=== PATIENT | male | born 1970 | race American Indian/Alaskan Native ===

== ENCOUNTER 2017-09-12 11:09 | Day surgery (SDC) | payer MEDICAID ==
[2017-08-28 17:19] VITALS: BMI 26.8
[2017-09-12 11:45] VITALS: RESP 20
[2017-09-12] MEDS ORDERED: Lactated Ringer's 1,000 ML IV ONE (12:06)
[2017-09-12] MEDS ORDERED: Bupivacaine 0.5% Inj(30mL) ONE (12:07)
[2017-09-12] MEDS ORDERED: Lidocaine 1% Inj (20ml) ONE (12:07)
[2017-09-12] MEDS ORDERED: ceFAZolin IV 1 gm in Dextrose 2 GM/100 ML BAG IVPB ONE (12:07)
[2017-09-12] MEDS ORDERED: ceFAZolin IV 1 gm in Dextrose 1 GM/50 ML BAG IVPB ONE (12:38)
[2017-09-12] MEDS ORDERED: Bupivacaine HCl 0.25% PF (30 ml) Inj IJ ONE (12:38)
--- NOTE | 2017-09-12 12:43 | CP.PCM.PN ---
Subjective - Date & Time of Evaluation Date of Evaluation: 09/12/17 Time of Evaluation: 12:39 - Subjective Subjective: Patient is a 46 y.o male with PMH of HTN and CVA seen in [facility] for pre-operative evaluation for left foot surgery by Dr. Price. Patient reports 08/23 with ambulation and movement of the 1st MPJ left foot. He states that he has had these pain over the past few years and is has progressively gotten worse over the years. He feels that he has exhausted all conservative treatment and now opts for surgery intervention. He last ate or drank anything at 10:30PM. He denies n/v/sob/cp/chills or f. Patient is in NAD, AA0x2 and seen resting comfortably in bedside. He is present with his mother. PSH: right foot surgery FH: mother hypertension ALL: NKDA. dust SH: 15 year smoker, 8 cigarettes a day, socially drinks, reports illicited, formerly used heroin. 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 Meds: methadone therapy Objective - Vital Signs/Intake and Output Vital Signs (last 24 hours): Temp Pulse Resp BP Pulse Ox 98 F 56 L 20 125/86 96 09/12/17 11:44 09/12/17 11:46 09/12/17 11:44 09/12/17 11:44 09/12/17 11:44 - Medications Medications: Current Medications Cefazolin Sodium 1 gm/ Sodium (Chloride) 100 mls @ 100 mls/hr IVPB ONCE ONE PRN Reason: Protocol Stop: 09/12/17 13:37 - Constitutional Appears: Well, Non-toxic, No Acute Distress - Extremities Exam Additional comments: Vasc: DP and PT 2/4 bilaterally, CFT <3 seconds to digits x10, temperature gradient WNL, no peripheral edema noted Ortho: moderate pain elicited upon palpation of the 1st MPJ medially and dorsally, restricted 1st MPJ ROM. Increae soft tissue mass medially and dorsum of the 1st MPJ. With stance, limited ROM of hallux noted. Negative crepitus to the right with mild crepitus noted to the left. STJ ROM is limited b/l, right: 9 degrees inversion, 8 degrees eversion, left 10 degrees inversion, 9 degrees eversion. There is mild forefoot valgus present bilaterally. There is plantarflexed first ray bilaterally, with rigid deformity. First MTPJ ROM on the left is to 5 degrees of dorsiflexion, 10 degrees of plantarflexion. There is no hammering of the lesser digits b/l . There is b/l hallux abductovalugs deformity L>R. There is collpase of the medial arch upon stance and gait, with mild abduction of the forefoot and rearfoot eversionb b/l. Neuro: protective and gross sensation intact Derm: hyperpigmented skin noted to the entire foot; no open lesions noted, no clinical signs of infection: no erythema, no purulence, or no odor. - Neurological Exam Neurological Exam: Alert, Awake, Oriented x3 - Psychiatric Exam Psychiatric exam: Normal Affect, Normal Mood Assessment and Plan - Assessment and Plan (Free Text) Assessment: Patient is a 46 y.o male with PMH of HTN and CVA seen in [facility] for pre-operative evaluation for left foot surgery by Dr. Price Plan: Pt was seen and examined in [facility] Pt NPO status was confirmed All Pre-op testing and clearance was in the chart Pt has exhausted all conservative treatment at this time and is opting for surgical intervention Pt was explained procedure and post-operative course All pt's questions were answered to satisfaction No guarantees were made Pt understands all risks, benefits and complications of procedure Pt will follow-up with
--- NOTE | 2017-09-12 12:43 | CP.SDSHP ---
Same Day Surgery H & P - History Proposed Procedure: left 1st cheilectomy with decompression with internal fixation Pre-Op Diagnosis: left painful hallux limitus - Allergies Allergies: Allergies No Known Allergies Allergy (Verified 05/04/17 14:02) - Physical Exam Vital Signs: Vital Signs 09/12/17 09/12/17 11:44 11:46 Temperature 98 F Pulse Rate 56 L 56 L Respiratory 20 Rate Blood Pressure 125/86 O2 Sat by Pulse 96 Oximetry Mental Status: Alert & Oriented x3 - Impression Impression: Pt was seen and examined in [facility]. Pt NPO status was confirmed. All Pre-op testing and clearance was in the chart. Pt has exhausted all conservative treatment at this time and is opting for surgical intervention. Pt was explained procedure and post-operative course. All pt's questions were answered to satisfaction. No guarantees were made. Pt understands all risks, benefits and complications of procedure. Pt will follow-up with Dr. Price - Date & Time Date: 09/12/17 Time: 12:35 Short Stay Discharge - Short Stay Discharge Admitting Diagnosis/Reason for Visit: M79.672 M20.5X2 Disposition: HOME/ ROUTINE Referrals: Sonia Velasquez MD [Primary Care Provider] - Additional Instructions (Diet, Activity): --Patient in good/stable condition for discharge home. Pt to resume medications per medical reconciliation. Resume regular diet. Please keep dressing clean, dry, & intact to surgical site, use plastic bag over bandage for showering, wear post op shoe at all times when ambulating, call clinic if you see signs of infection (redness, swelling, malodor), please make an appointment to see Dr. Price in office/clinic within 1 week for post-op check. Progress Note/Discharge Note with Instructions: - Patient evaluated bedside in recovery s/p surgical procedure. - After surgical procedure patient in NAD - (+) Void, (+) Appetite - Capillary refill time <3s and NVSI intact. - Patient denies complaints at this time - Post operative instructions and plan of care explained to patient at length. - Pt. acknowledges understanding. - Patient stable for DC per podiatric surgery
[2017-09-12] MEDS ORDERED: Midazolam 2 MG/2 ML VIAL ONE (13:22)
[2017-09-12] MEDS ORDERED: Propofol 10 mg/ml Inj (20 ML) ONE ×2 (13:22→14:38)
[2017-09-12] MEDS ORDERED: Lidocaine 2% PF (10 ml) Amp ONE (13:24)
[2017-09-12] MEDS ORDERED: Bupivacaine 0.5% 50 ML IJ ONE ×2 (13:50)
[2017-09-12] MEDS ORDERED: HYDROmorphone 0.5 mg/0.5 ml ISec IVP PRN (15:19)
--- NOTE | 2017-09-12 15:21 | PCM.SURG1 ---
Surgeon's Initial Post Op Note - Surgeon's Notes Surgeon: Dr. Price DPM Manager Emergency Department: Dr. Pedroza DPM PGY-2, Saurabh MSY4 Type of Anesthesia: IV Sedation, Local Anesthesia Administered By: Dr. Peace Pre-Operative Diagnosis: painful left hallux limitus Operative Findings: see dictations. injectables 20 cc .5% marcaine plain, vicryl 3-0, vicrl 4-0, nylon 4-0, bone wax Post-Operative Diagnosis: same Operation Performed: left hallux chielectomy Specimen/Specimens Removed: head of the 1st metatarsal left Estimated Blood Loss: EBL {In ML}: 0 Blood Products Given: N/A Drains Used: No Drains Post-Op Condition: Good Date of Surgery/Procedure: 09/12/17 Time of Surgery/Procedure: 13:00
--- NOTE | 2017-09-12 16:27 | RAD ---
PROCEDURE: Left Foot Radiographs. HISTORY: s/p left foot surgery COMPARISON: 07/06/2017 FINDINGS: BONES: Postoperative findings following hallux valgus repair. JOINTS: No significant interval change compared to the prior examination(s). SOFT TISSUES: Soft tissue swelling at the surgical site OTHER FINDINGS: None. IMPRESSION: Satisfactory postoperative status.
[2017-09-12 18:15] VITALS: BP 133/77; PULSE 62; TEMP 98.5; O2SAT 99
--- NOTE | 2017-09-13 00:31 | OP ---
PREOPERATIVE DIAGNOSIS: Left foot painful hallux rigidus. POSTOPERATIVE DIAGNOSIS: Left foot painful hallux rigidus. PROCEDURE: Left foot first metatarsal cheilectomy. SURGEON: Shoaib Price DPM. PROGRAM/MUSIC DIRECTOR: Snow Pedroza DPM, PGY-2. TYPE OF ANESTHESIA: IV sedation with local. ANESTHESIA ADMINISTERED BY: Elías Peace MD. INDICATIONS: The patient is a 46-year-old male with the above diagnosis. The patient has exhausted all conservative treatment and now requires surgical intervention. At this time, the patient signed the consent after careful explanation of risks, benefits, complications and alternatives for surgical procedure. No guarantees were given or implied. PREPARATION: The patient was brought into the operating room and placed in the operating room in a supine position. A well-padded pneumatic ankle tourniquet was applied to the patient's left ankle on the supramalleolar position. A time-out was performed for identification of correct patient and procedure. The patient received a total of 20 mL of a 0.5% Marcaine plain in a local block fashion to the left foot. Once local anesthesia was achieved, the left foot was then prepped and draped in the normal sterile manner. The patient's left foot was then exsanguinated by elevation and the pneumatic ankle tourniquet was inflated to 250 mmHg and the procedure began. DESCRIPTION OF PROCEDURE: Procedure 1 is left foot first metatarsophalangeal joint cheilectomy. Attention was directed to the dorsal aspect of the first metatarsophalangeal joint where an approximately 6 cm linear incision was made over the medial eminence. This incision was deepened using sharp and blunt dissection technique. All vital and neurovascular structures were retracted as necessary. A linear capsulotomy was performed with extension over the proximal phalanx and first metatarsal to expose the first metatarsophalangeal joint. The patient had hypertrophic bone formation. There was degeneration noted to the distal aspect of the first metatarsal head. The hypertrophied bone was excised using a sagittal saw and a rongeur from the dorsal, lateral and medial aspects of the first metatarsal head. All bony prominences were smoothed utilizing the sagittal saw. Attention was then directed to the distal aspect of the first metatarsal head and the base of the proximal phalanx where eburnation was noted. Utilizing a K-wire, the metatarsal head and base of the proximal phalanx were fenestrated. The surgical site was then irrigated with copious amounts of sterile saline. The bone was then further remodeled utilizing a sagittal saw and rongeur. The surgical site was then irrigated again. Bone wax was then applied to the first metatarsal. The surgical site was then irrigated with copious amount of normal sterile saline. The capsule was closed utilizing #3-0 Vicryl. The subcutaneous tissue was then closed utilizing #4-0 Vicryl. The skin was then closed utilizing #4-0 nylon in a combination of simple and horizontal suture technique. Postoperative dressings included Betadine-soaked Adaptic, 4x4's, Sarah and lastly TAYLOR. POSTOPERATIVE CONDITION: The patient tolerated the anesthesia and procedure well and was escorted to the recovery room with vital signs stable and neurovascular structures intact to the left foot. The patient will follow up with Dr. Price in clinic. Snow Pedroza DPM Shoaib Price DPM
== END 2017-09-12 18:40 | disposition home or self-care (01) ==
LOC: H.OPSURG 11:09
PROVIDERS: ATTEND Podiatrist Foot & Ankle Surgery
DX: M20.22 Hallux rigidus, left foot (principal); M20.5X2 Other deformities of toe(s) (acquired), left foot; Z86.73 Personal history of transient ischemic attack (TIA), and cerebral infarction without residual deficits; I10 Essential (primary) hypertension
CPT/HCPCS: 28291; 73620; 97116; 97161; G8978; G8979; G8980; J0690; J2250; J2704; J3010; J7120